=== PATIENT | female | born 1965 | race Caucasian/White ===

== ENCOUNTER → 2017-02-15 | Outpatient (CLI) | payer OTHER ==
--- NOTE | ~2017-02-15 | CR63 ---
[facility]. [facility] A Service of [facility] & [facility] RADIOLOGY TEXT RESULTS PATIENT: GERMANIA ANGELES LOCATION: [facility] : 61 UNIT #: [id number] AGE: [address]: SYDNEE ALANIS APRN SEX: F ORDER DR: [id number] [address] [address] [id number] O MR#: [id number] Acc #: [id number] NAME: GERMANIA ANGELES : 1965 SEX: F STUDY DATE/TIME: 02/15/2017 13:49 UNIT: [facility] ROOM: STUDY DESCRIPTION: CR Chest 2 View Attending Physician: Sydnee Alanis Aprn Referring Physician: Sydnee Alanis Aprn Ordering Physician: Sydnee Alanis Aprn Primary Care Physician: Peyton Galeas M.D. MEDICAL IMAGING REPORT This report is preliminary unless electronic signature is present. EXAM Two-view chest 02/15/2017 HISTORY 51-year-old female with shortness of air for a couple of months. Smoker. COMPARISON STUDIES None. FINDINGS 2 views of the chest demonstrate clear lungs. No pleural effusion or pneumothorax. Heart size and mediastinum are normal. Pulmonary vasculature normal. IMPRESSION No acute cardiopulmonary findings. Dictated by... Orville Means M.D. THIS IS AN ELECTRONICALLY VERIFIED REPORT Orville Means M.D. at 02/16/2017 1:51 PM EDE/alexandra TD: 02/15/2017 18:32 JOB #: [id number] MEDICAL IMAGING REPORT Page 1 of 1
--- NOTE | ~2017-02-15 | CR151 ---
[facility]. [facility] A Service of [facility] & [facility] RADIOLOGY TEXT RESULTS PATIENT: GERMANIA ANGELES LOCATION: [facility] : 61 UNIT #: [id number] AGE: [address]: SYDNEE ALANIS APRN SEX: F ORDER DR: [id number] [place] [id number] O MR#: [id number] Acc #: [id number] NAME: GERMANIA ANGELES : 1965 SEX: F STUDY DATE/TIME: 02/15/2017 13:49 UNIT: [facility] ROOM: STUDY DESCRIPTION: CR Hip Min 2 Views Rt Attending Physician: Sydnee Alanis Aprn Referring Physician: Sydnee Alanis Aprn Ordering Physician: Sydnee Alanis Aprn Primary Care Physician: Peyton Galeas M.D. MEDICAL IMAGING REPORT This report is preliminary unless electronic signature is present. EXAM Right hip 02/15/2017 HISTORY 51-year-old female with right hip pain radiating down right leg for a couple months. COMPARISON STUDIES None. FINDINGS 2 views of the right hip demonstrate no acute fracture or dislocation. Joint spaces are normally maintained. Bony pelvis intact. Sacrum and SI joints intact. IMPRESSION Unremarkable right hip. Dictated by... Orville Means M.D. THIS IS AN ELECTRONICALLY VERIFIED REPORT Orville Means M.D. at 02/16/2017 1:51 PM EDE/pcl TD: 02/15/2017 18:33 JOB #: [id number] MEDICAL IMAGING REPORT Page 1 of 1
== END | disposition home or self-care (01) ==
LOC: SRAD 13:41
DX: R06.02 Shortness of breath (principal); F17.200 Nicotine dependence, unspecified, uncomplicated; M25.551 Pain in right hip
CPT/HCPCS: 71020; 73502